=== PATIENT | female | born 1975 | race Caucasian/White ===

== ENCOUNTER 2016-03-26 13:19 | Emergency (ER) | payer OTHER ==
[2016-03-26 13:26] VITALS: BP 141/80
== END 2016-03-26 18:22 | disposition left against medical advice (07) ==
LOC: ED 13:19
DX: R51 Headache (principal); Z53.21 Procedure and treatment not carried out due to patient leaving prior to being seen by health care provider

== ENCOUNTER 2018-11-21 12:10 | Emergency (ER) | payer OTHER ==
[2018-11-21] MEDS ORDERED: diPHENhydraMINE IV* 50 MG/ML 1 ml VIAL (BENADRYL) ONE (12:21)
[2018-11-21] MEDS ORDERED: Dexamethasone IV* 4 MG/ML 1 ML (4 MG) ONE (12:22)
[2018-11-21] MEDS ORDERED: Famotidine IV* 10 MG/ML 2 ML (20 mg) ONE (12:23)
--- NOTE | 2018-11-21 12:24 | ED ---
Allergic Reaction/Systemic - HPI Summary HPI Summary: This patient is a 43 year old F presenting to ED with a chief complaint of bee sting on upper lip at 1130. Patient previously has had allergic reaction to bee stings. Today, she feels like her throat is swelling. She took two Benadryl tablets and an Epi-Pen at 1140. The patient rates the pain 0/10 in severity. Symptoms aggravated by nothing. Symptoms alleviated by Benadryl, Epi- Pen. Patient reports rash on upper chest. Patient denies SOB. - History of Current Complaint Chief Complaint: EDAllergicReaction Hx Obtained From: Patient Hx Last Menstrual Period: years Onset/Duration: Sudden Onset, Started minutes ago - At 1130, Still Present Timing: Constant, Lasting Minutes - Since 1130 Severity Initially: Moderate Severity Currently: Moderate Pain Intensity: 0 Pain Scale Used: 0-10 Numeric Character: Swelling, Hives - On neck Aggravating Factor(s): Nothing Alleviating Factor(s): Other - Benadryl, Epi-Pen Associated Signs And Symptoms: Positive: Negative - SOB, Rash, Throat Tightening - Allergies/Home Medications Allergies/Adverse Reactions: Allergies Allergy/AdvReac Type Severity Reaction Status Date / Time cephapirin [From Cefadyl] Allergy Intermediate Hives/Diff. Verified 10/29/18 14: 36 Breathing/I tching Penicillins Allergy Intermediate Hives/Diff. Verified 10/29/18 14:36 Breathing/I tching cefadroxil Allergy Hives/Diff. Verified 10/29/18 14:36 Breathing/I tching cephalexin Allergy Hives/Diff. Verified 10/29/18 14:36 Breathing/I tching troleandomycin Allergy Hives/Diff. Verified 10/29/18 14:36 Breathing/I tching ENVIRONMENTAL/SEASONAL Allergy SNEEZING, Uncoded 10/29/18 14:36 HAYFEVER STUFFINESS PMH/Surg Hx/FS Hx/Imm Hx Endocrine/Hematology History: Denies: Hx Diabetes Cardiovascular History: Denies: Hx Hypertension, Hx Pacemaker/ICD, Other Cardiovascular Problems/ Disorders Respiratory History: Reports: Hx Asthma Denies: Other Respiratory Problems/Disorders GI History: Reports: Hx Irritable Bowel Denies: Other GI Disorders History: Denies: Hx Renal Disease Musculoskeletal History: Reports: Hx Back Problems, Hx Tendonitis - RIGHT ARM, Other Musculoskeletal History - Chronic Neck Pain Sensory History: Reports: Hx Contacts or Glasses - GLASSES Denies: Hx Hearing Aid Opthamlomology History: Reports: Hx Contacts or Glasses - GLASSES Neurological History: Denies: Hx Headaches, Other Neuro Impairments/Disorders - PAIN CLINIC PT. Psychiatric History: Reports: Hx Anxiety Denies: Hx Panic Disorder - Cancer History Cancer Type, Location and Year: BASAL CELL NOSE - Surgical History Surgery Procedure, Year, and Place: tonsillectomy 1995; appendectomy 1996; tubal ligation 2000; endometrial ablation 2006; D&C 1999; R nose basal cell carcinoma removed 2008; endometrial implant removed R groin 2010. RADIAL NERVE DECOMPRESSION RIGHT ARM, 2012. 2013, LAPAROSCOPY,. [facility] HYSTERECTOMY 07/2014 Hx Anesthesia Reactions: Yes - SEVERE NAUSEA Infectious Disease History: No Infectious Disease History: Denies: Traveled Outside the [place] in Last 30 Days - Family History Known Family History: Positive: Hypertension, Other - Melanoma, Cervical cancer - Social History Alcohol Use: Occasionally Alcohol Amount: 1-2 drinks per week Hx Substance Use: No Substance Use Type: Reports: None Hx Tobacco Use: No Smoking Status (MU): Never Smoked Tobacco Have You Smoked in the Last Year: No Review of Systems ENT: Other - Swollen throat Negative: Shortness Of Breath Positive: Rash - On chest All Other Systems Reviewed And Are Negative: Yes Physical Exam - Summary Physical Exam Summary: GENERAL: Patient is a well-developed and nourished F who is lying comfortable in the stretcher. Patient is not in any acute respiratory distress. HEAD AND FACE: Normocephalic EYES: PERRLA, EOMI x 2. EARS: Hearing grossly intact. MOUTH: Oropharynx within normal limits. Uvula is unswollen and midline NECK: Supple, trachea is midline, no adenopathy, no JVD, no carotid bruit. CHEST: Symmetric, no tenderness at palpation LUNGS: Clear to auscultation bilaterally. No wheezing or crackles. CVS: Regular rate and rhythm, S1 and S2 present, no murmurs or gallops appreciated. ABDOMEN: Soft, non-tender. Bowel sounds are normal. No abnormal abdominal pulsations. EXTREMITIES: Full ROM in all major joints, no edema, no cyanosis or clubbing. NEURO: Alert and oriented x 3. No acute neurological deficits. Speech is normal and follows commands. SKIN: Hive-like rashes on neck anteriorly and posteriorly. Triage Information Reviewed: Yes Vital Signs On Initial Exam: Initial Vitals Temp Pulse Resp BP Pulse Ox 99.9 F 123 12 160/96 100 11/21/18 12:11 11/21/18 12:11 11/21/18 12:11 11/21/18 12:11 11/21/18 12:11 Vital Signs Reviewed: Yes Diagnostics - Vital Signs Vital Signs Temp Pulse Resp BP Pulse Ox 11/21/18 12:11 99.9 F 123 12 160/96 100 - Laboratory Lab Statement: Any lab studies that have been ordered have been reviewed, and results considered in the medical decision making process. Re-Evaluation - Re-Evaluation First Eval Re-Evaluation Time: 14:19 Change: Improved Comment: Patient reports feeling better. Given patient's allergic history, I will watch the patient for another hour and then discharge her. Patient understands and agrees with this plan. Second Eval Re-Evaluation Time: 15:27 Change: Improved Comment: Patient reports feeling better, safe for discharge. Allergic Reaction Course/Dx - Course Course Of Treatment: This patient is a 43 year old F presenting to ED with a chief complaint of allergic reaction to bee sting on upper lip at 1130. In the ED course patient received Decadron, Benadryl, Famotidine, and fluids. With treatment and observation, patient reports feeling better. I discussed results with patient, and she reports feeling better. She is hemodynamically stable and safe for discharge. Strict return precautions given and she will otherwise follow up with her PCP. Patient will be discharged home with dx of allergic reaction to bee sting. Patient understands and agrees with this plan. - Diagnoses Provider Diagnoses: Allergic reaction to bee sting Discharge ED - Sign-Out/Discharge Documenting (check all that apply): Patient Departure - Discharge Patient Received Moderate/Deep Sedation with Procedure: No - Discharge Plan Condition: Stable Disposition: HOME Prescriptions: diphenhydrAMINE HCl [Benadryl] 25 mg PO TID #24 capsule EPINEPHrine [Epipen 2-Shane] 0.3 mg IM ONCE #1 inj Famotidine TAB* [Pepcid 20 MG TAB*] 20 mg PO BID #24 tab predniSONE [Prednisone 20 MG TAB] 20 mg PO DAILY #4 tablet Patient Education Materials: Insect Bite or Sting (ED), Allergies (ED) Referrals: Marquise Weiss MD [Primary Care Provider] - 3 Days Additional Instructions: Follow up with your primary care physician in 1-3 days. RETURN TO THE EMERGENCY DEPARTMENT FOR CHANGING OR WORSENING SYMPTOMS. - Billing Disposition and Condition Condition: STABLE Disposition: Home - Attestation Statements Document Initiated by Prince: Yes Documenting Scribe: Sharif Ornelas Provider For Whom Prince is Documenting (Include Credential): Cesar Castorena MD Scribe Attestation: I, Sharif Ornelas, scribed for Cesar Castorena MD on 11/21/18 at 1807. Scribe Documentation Reviewed: Yes Provider Attestation: The documentation as recorded by the Sharif houston accurately reflects the service I personally performed and the decisions made by me, Cesar Castorena MD Status of Scribe Document: Viewed
[2018-11-21] MEDS ORDERED: NS 0.9% 1000 ML** 1,000 ML IV.FLUID IV ONE (12:27)
[2018-11-21] MEDS ORDERED: diPHENhydraMINE IV* 50 MG/ML 1 ml VIAL (BENADRYL) IV ONE (12:27)
[2018-11-21] MEDS ORDERED: Famotidine IV* 10 MG/ML 2 ML (20 mg) IV SLOW PU ONE (12:27)
[2018-11-21] MEDS ORDERED: Dexamethasone IV* 4 MG/ML 1 ML (4 MG) IV SLOW PU ONE (12:27)
[2018-11-21 15:53] VITALS: BP 118/72
== END 2018-11-21 15:55 | disposition home or self-care (01) ==
LOC: ED 12:10
DX: T63.441A Toxic effect of venom of bees, accidental (unintentional), initial encounter (principal); R21 Rash and other nonspecific skin eruption; Y92.9 Unspecified place or not applicable
CPT/HCPCS: 96374; 96375; 99284; J1100; J1200

== ENCOUNTER 2019-05-17 05:53 | Observation (INO) | payer OTHER ==
[~2019-05-17 05:53] MED LIST: Buffered Lidocaine 1% SYRIN* 1 ML/SYRINGE INTRADERM ONE
[2019-05-17] MEDS ORDERED: Gabapentin CAP(*) 300 MG PO ONE (06:00)
[2019-05-17] MEDS ORDERED: Lactated Ringers 1000 ML Bag* 1,000 ML IV SCH ×2 (06:00→12:00)
[2019-05-17] MEDS ORDERED: Famotidine IV* 10 MG/ML 2 ML (20 mg) IV ONE (06:00)
[2019-05-17] MEDS ORDERED: Buffered Lidocaine 1% SYRIN* 1 ML/SYRINGE INTRADERM ONE (06:33)
[2019-05-17] MEDS ORDERED: Gabapentin CAP(*) 300 MG ONE (06:34)
[2019-05-17] MEDS ORDERED: Famotidine IV* 10 MG/ML 2 ML (20 mg) ONE (06:34)
[2019-05-17] MEDS ORDERED: Lidocaine 1% w EPI 1:200,000* SDV 30 ML VIAL ONE (06:48)
[2019-05-17] MEDS ORDERED: Bacitracin INJECTION* 50,000 UNITS ONE (06:48)
[2019-05-17] MEDS ORDERED: Vancomycin(*) 1,000 MG in NS 0.9% 250 ML* 250 ML IV ONE (07:00)
[2019-05-17] MEDS ORDERED: Midazolam* 1 MG/ML 2 ML VIAL (2 MG) ONE ×2 (07:17→08:14)
[2019-05-17] MEDS ORDERED: fentaNYL* 50 MCG/ML 2 ML VIAL (100 MCG VIAL) ONE ×3 (07:17→11:28)
[2019-05-17] MEDS ORDERED: Rocuronium* 10 MG/ML VIAL ONE (08:25)
[2019-05-17] MEDS ORDERED: Lidocaine 2% PF * 5 ML VIAL ONE ×2 (08:41→14:27)
[2019-05-17] MEDS ORDERED: Acetaminophen IV 1GM/100ML * 100 ML ONE (08:41)
[2019-05-17] MEDS ORDERED: Propofol* 500 MG/50 ML BTL ONE (08:41)
[2019-05-17] MEDS ORDERED: Remifentanil* 2 MG VIAL ONE ×2 (08:49→08:51)
[2019-05-17] MEDS ORDERED: Scopolamine 1.5 mg* PATCH ONE (08:51)
[2019-05-17] MEDS ORDERED: EPHEDrine (Pressors)* 50 MG/ML VIAL ONE (09:25)
[2019-05-17] MEDS ORDERED: Naloxone* 0.4 MG/ML 1 ML VIAL IV PRN (09:36)
[2019-05-17] MEDS ORDERED: DiMENhydriNATE IV* 50 MG/ML VIAL IV PUSH PRN (09:36)
[2019-05-17] MEDS ORDERED: Ondansetron INJ* 2 MG/ML VIAL IV PRN ×2 (09:36→11:21)
[2019-05-17] MEDS ORDERED: diPHENhydraMINE IV* 50 MG/ML 1 ml VIAL (BENADRYL) IV PRN (09:36)
[2019-05-17] MEDS ORDERED: Levalbuterol 0.63MG/3ML NEB* UNIT OF USE INH PRN (09:36)
[2019-05-17] MEDS ORDERED: PROCHLORPERAZINE INJ 5 MG/ML 2 ML VIAL IV PRN ×2 (09:36→16:59)
[2019-05-17] MEDS ORDERED: Ondansetron INJ* 2 MG/ML VIAL ONE ×2 (10:41→14:28)
[2019-05-17] MEDS ORDERED: Dexamethasone IV* 4 MG/ML 1 ML (4 MG) ONE ×2 (10:41→14:28)
[2019-05-17] MEDS ORDERED: Magnesium Hydroxide LIQ* 30 ML UDC PO PRN (11:21)
[2019-05-17] MEDS ORDERED: HYDROcodone/ACETAMIN 5-325 MG* 1 TAB PO PRN (11:21)
[2019-05-17] MEDS: fentaNYL* 50 MCG/ML 2 ML VIAL (100 MCG VIAL) IV PRN ×3 (11:29→11:50)
[2019-05-17] MEDS: HYDROcodone/ACETAMIN 5-325 MG* 1 TAB PO PRN ×3 (13:00→22:34)
[2019-05-17] MEDS ORDERED: Propofol* 10 MG/ML 20 ML BTL ONE (14:28)
[2019-05-17] MEDS ORDERED: Ketorolac INJ* 30 MG/ML 1 ML VIAL ONE (14:28)
[2019-05-17] MEDS ORDERED: diPHENhydraMINE IV* 50 MG/ML 1 ml VIAL (BENADRYL) ONE (14:28)
--- NOTE | 2019-05-17 18:52 | CONS ---
HOSPITAL MEDICINE CONSULTATION REPORT: DATE OF CONSULT: 05/17/19 PROVIDER: Palomo Domínguez NP. ATTENDING PHYSICIAN WHILE IN THE HOSPITAL: Dr. Womack. CONSULTING PHYSICIAN: Dr. Kamilah Moreira (dictated by Palomo Domínguez NP). REASON FOR CONSULT: Co-management of care. HISTORY OF PRESENT ILLNESS: Ms. Webb is a 44-year-old female with a past medical history significant for asthma, endometriosis, and irritable bowel, who presented to [facility] for an elective anterior cervical diskectomy and fusion at C5- C6 with Dr. Womack. Please see dictated H and P from Dr. Womack for complete details. In brief, the patient has had ongoing pain for the past 2 years radiating to her left shoulder and left arm. Due to the consistent pain, she opted to proceed with an anterior cervical diskectomy and fusion at C5-C6. The patient denies any recent fevers, chills, chest pain, or shortness of breath. She denies any cough or hemoptysis. She denies any nausea, vomiting, diarrhea, abdominal pain, hematuria, dysuria, focal weakness, sensory loss, visual complaints, dysphagia, arthralgias, myalgias, rashes, lesions, open sores , psychosis, or anxiety. PAST MEDICAL HISTORY: Significant for asthma, endometriosis, irritable bowel syndrome, and spondylosis. PAST SURGICAL HISTORY: 1. Appendectomy. 2. Tonsillectomy. 3. Laparotomy. 4. TMJ surgery. 5. Tubal ligation. 6. Hysterectomy. HOME MEDICATIONS: Include: 1. Tylenol 650 mg every 4 hours as needed for pain. 2. Ibuprofen 400 to 600 mg every 6 hours. 3. Multivitamin. ALLERGIES: PENICILLIN, DURICEF, KEFLEX, and TROLEANDOMYCIN. FAMILY HISTORY: Mother with a history of hypertension. Father with a history of CHF. Maternal grandmother with bladder cancer. No reported history of diabetes. SOCIAL HISTORY: The patient has never smoked. She does report occasional alcohol use. No illicit drug use. Surrogate decision maker in the event she is unable to make her own decisions is her . She is a full code. REVIEW OF SYSTEMS: A 14-point review of systems was completed. All pertinent positives were mentioned in the HPI, otherwise were negative. The patient does complain of some left arm heaviness at this time, but has full range of motion of her left arm and sensation is intact to the left arm. PHYSICAL EXAM: General: At this time, Ms. Webb is alert and oriented, resting in her hospital bed. She is in no acute distress. Vital Signs: Blood pressure 127/91, heart rate 90, respirations are 20, O2 saturation is 100%. HEENT: Head is atraumatic, normocephalic. Eyes: EOMs are intact. Sclerae anicteric and not pale. Oral mucosa is moist. Neck: She does have an M J- collar intact with a dry and intact dressing to the right anterior neck. Lungs are clear to auscultation bilaterally. Cardiac: S1, S2. Regular rate and rhythm. No murmurs, rubs, or gallops. Abdomen is soft and nontender. Bowel sounds are present x4. Extremities: She is able to move all 4 extremities. There is no clubbing or cyanosis. Radial pulses are +2. Pedal pulses are +2. Sensation is intact to all 4 extremities. Neurologic: She is awake, alert, oriented x3. Speech is clear. Thought process is intact. Handgrips are equal. Sensation is intact to the upper and lower extremities. Skin: She does have a dressing dry and intact to her right anterior neck. DIAGNOSTIC STUDIES/LAB DATA: CBC from 05/03/19: WBCs were 6.4, RBCs 4.28, hemoglobin 14.0, hematocrit was 41, platelet count was 190. INR 0.98. Sodium 139, potassium 3.6, chloride 104, carbon dioxide was 21, anion gap was 14, BUN was 10, creatinine 0.84, glucose was 79. Urine was within normal limits with the exception specific gravity was 1.009, blood was 1+, and squamous epithelial cells were present. IMPRESSION AND PLAN: Ms. Webb is a 44-year-old female with a past medical history significant for asthma, endometriosis, irritable bowel, spondylosis, who presented to [facility] for an elective anterior cervical diskectomy and fusion at C5-C6 with Dr. Womack. Hospital Medicine was asked to consult to co-manage her care during this hospitalization. Our recommendations are as follows: 1. Status post anterior cervical diskectomy and fusion with Dr. Womack. Management per Neurosurgery. The patient should leave the M J-collar in place. Pain management per Neurosurgery. DVT prophylaxis per Neurosurgery. Ambulation and PT per Neurosurgery. 2. Asthma. The patient does not currently take any inhalers or treatment for her asthma. We will continue to monitor. 3. DVT prophylaxis: She will have SCDs. 4. FEN: She can have a regular diet. 5. Code status: She is a full code. TIME SPENT: Time spent on this consultation is 45 minutes, greater than half that time was spent at the bedside reviewing the events leading thus far to her hospitalization, performing physical exam, and reviewing my plan of care. I have discussed this with my attending Dr. Kamilah Moreira; she is in agreement with my plan. PALOMO DOMÍNGUEZ, SECURITY GUARDS DISPATCHER [id number]/CPS #: [id number] DES
--- NOTE | 2019-05-18 | OP ---
DATE OF OPERATION: 05/17/19 - ROOM #340 DATE OF : 77 SURGEON: Dilma Womack MD AGILE BUSINESS ANALYST: STEPHANIE Stevens ANESTHESIA: General. PRE-OP DIAGNOSES: 1. Degenerative disk disease. 2. Herniated nucleus pulposus. POST-OP DIAGNOSES: 1. Degenerative disk disease. 2. Herniated nucleus pulposus. OPERATIVE PROCEDURE: The patient underwent anterior cervical diskectomy and fusion at C5-6 with allograft, DBX, plate and screws, with intraoperative electrophysiological monitoring. ESTIMATED BLOOD LOSS: 10 cc. COMPLICATIONS: None. SUMMARY: The patient is a very pleasant 44-year-old female with complaints of severe neck pain radiating to the left more than right upper extremity. MRI revealed significant degenerative disk disease especially at C5-6 with left disk herniation. After failing conservative treatment modalities, she was offered the option of surgical intervention. After explaining expectations, limitations, and possible complications of the procedure to the patient and her family including her , her mother and her father with complications including, but not limited to bleeding, infection, risk of injury to adjacent structures, coma, paralysis, , need for additional procedures, anesthesia risks, stroke, blindness, cancer, instability, hardware failure, adjacent level disease, pseudoarthrosis, spinal fluid leak, recurrent laryngeal nerve injury, injury to the esophagus or trachea, need for tracheostomy or gastrostomy, Anju syndrome, postoperative hematoma, DVT, pulmonary embolism, need for prolonged ICU stay, prolonged hospitalization, prolonged rehabilitation; the patient was agreeable to proceed with surgery and informed consent was obtained. The patient understood that her condition may not improve and in fact may get worse after surgery and that she may need to have additional procedures in the future. She also understood that operative plan may be modified according to intraoperative findings and conditions and that the procedure can be abandoned or done in more than 1 stages. DESCRIPTION OF PROCEDURE: The patient was brought to the operating room and was placed under general anesthesia by the anesthesia team. She was carefully positioned supine on the Tenzin table and all bony prominences were meticulously padded. Her skin was prepped and draped in the standard fashion. After appropriate surgical pause and patient identification, a right transverse incision over the C5-6 disk space was marked on the skin with the assistance of intraoperative fluoroscopic imaging. After appropriate surgical pause and patient identification, the skin incision was infiltrated with local anesthetic. A #10 surgical blade was used to incise the skin. The incision was carried down through the subcutaneous tissue and the skin was carefully undermined with tenotomy scissors. Self-retaining retractors were introduced into the field and the platysma was then gently elevated and divided with Metzenbaum scissors. The platysma was undermined and then the plane between the medial border of the sternocleidomastoid and the medial structures was gently developed with sharp and dull dissection. The prevertebral fascia was identified and after this was thinned down with Kittner sponges, the anterior part of the spine was identified and a second intraoperative fluoroscopic imaging was obtained to confirm the appropriate surgical level. A second time- out was performed. Two [place] pins were placed, one in the vertebral body of C5 and one in C6 and self-retaining retractors were introduced into the field. The [place] pin retractor was also introduced and operative microscope was brought into the field. The diskectomy was performed after incising the annulus fibrosus with a #15 surgical blade. The diskectomy was carried out with pituitary rongeurs, Kerrison punches, high-speed drill, and curettes. The posterior longitudinal ligament was then identified and it was divided and the thecal sac was found to be free of any pressure phenomenon at the end of the diskectomy. Foraminotomies were performed bilaterally and the thecal sac was found to be free of any pressure phenomenon. After confirmation of meticulous hemostasis, meticulous inspection, copious irrigation, and after confirming meticulous hemostasis with Valsalva maneuver, a 7 mm allograft structural graft was inserted after being filled with locally harvested bone graft during the diskectomy and disk preparation phase of the procedure as well as DBX putty. A Zevo Medtronic plate was then placed and secured with temporary screws and intraoperative fluoroscopic imaging confirmed excellent placement of all hardware. Then, titanium screws were placed and fluoroscopic imaging confirmed excellent placement of all hardware. The self-retaining retractors were removed from the field and final operative x-ray revealed excellent placement of all hardware. The wound was then copiously irrigated and after confirmation of meticulous hemostasis and meticulous inspection, it was closed by layers over a Lazaro drain which was tunneled through a separate stab wound incision. The platysma was approximated with interrupted 2-0 Vicryl sutures while the subcutaneous tissue was approximated with interrupted 2-0 Vicryl sutures. The skin was then covered with Dermabond and sterile dressings. At the end of the procedure, all counts were reported to be correct. The patient remained hemodynamically stable throughout the case. Intraoperative electrophysiological monitoring remained stable throughout the case. The patient was then extubated and transferred to Recovery in excellent condition. [id number]/[facility] #: [id number] DES
[2019-05-18] MEDS: Acetaminophen TAB* 325 MG PO PRN ×2 (05:30→09:41)
--- NOTE | 2019-05-18 07:41 | PN ---
Progress Note - Progress Note Date of Service: 05/18/19 SOAP: Subjective: []No events ON. Tolerates Po well. Voids. Ambulates. Preop LUE pain resolved. Objective: []VSS, Afebrile. Wound s,c,d Lazaro drain output noted. Drain was removed. Catheter appeared to be intact. No complications. Patient tolerated procedure well. AAOx3. ABDOULAYE, CN II-XII grossly intact Motor 5/5 all extremities Sensory grossly intact to light touch Assessment: []44 yof PD#1 ACDF C 5-6 Plan: []Monitor VS, Neurochecks Maintain MJ collar XR today. DC planning if XR ok. Full instruction were given. No lifting, no bending, no driving. Keep incision dry. May shower starting tomorrow. No baths Follow up in office in 7-10 days. Appreciate IM care. Kami Womack MD
[2019-05-18 10:35] VITALS: BP 116/65
--- NOTE | 2019-05-18 20:26 | DS ---
CC: Dr. Marquise Weiss; Dr. Dilma Womack* DISCHARGE SUMMARY: DATE OF ADMISSION: 05/17/19 DATE OF DISCHARGE: 05/18/19 PRIMARY CARE PROVIDER: Dr. Marquise Weiss. NEUROSURGEON: Dr. Dilma Womack. ATTENDING PHYSICIAN: Dr. Maddy Rodriguez* (dictated by Gabriella rOdonez NP). PRIMARY DIAGNOSIS: Status post anterior cervical diskectomy and fusion at C5- C6. SECONDARY DIAGNOSES: 1. Asthma. 2. Endometriosis. 3. Irritable bowel syndrome. STUDIES WHILE IN THE HOSPITAL: Cervical spine x-ray on 05/18/19 reads as status post anterior cervical fusion. HISTORY OF PRESENT ILLNESS AND HOSPITAL COURSE: Ms. Webb is a 44-year-old female with past medical history of asthma, endometriosis, IBS, and spondylosis , who presented to [facility] on 05/17/19 for an elective anterior cervical diskectomy and fusion with Dr. Womack. Please see the history and physical by Dr. Womack for complete details, but in short, the patient had ongoing neck pain and elected to proceed with a diskectomy and fusion at C5-C6. The patient underwent the procedure on 05/17/[address] Womack. There was minimal blood loss. The patient did well in recovery and had no complications overnight. Pain has been managed with Christine. The patient was seen in followup by Dr. Womack this morning. He took a drain out at that point and ordered postoperative x-rays. The patient did have a cervical spine x- ray this morning, which Dr. Womack reviewed, I spoke with him after that and he reported that the x-ray looked fine and that the patient was stable for discharge from his perspective. The patient reports doing well and is interested to return home today. PHYSICAL EXAMINATION: On exam, she is alert and oriented x4 with no focal neurological deficits. She moves all extremities. Heart has a regular rate and rhythm without murmurs, rubs, or gallops. Lungs are clear to auscultation without rhonchi, wheezes, or rubs. There is no edema. There is a Archuleta J collar in place. Physical exam is otherwise benign. Ms. Webb is stable for discharge. Most recent vitals are as follows: Temp 98.5, heart rate 75, respiratory rate 14, oxygen saturation 100% on room air, blood pressure 116/65. DISCHARGE MEDICATIONS: New: 1. Christine 1 to 2 tabs p.o. q.6 hours p.r.n. pain. 2. Milk of mag 30 mL p.o. daily p.r.n. constipation. 3. Ondansetron 4 mg p.o. q.6 hours p.r.n. nausea and vomiting. Continued: 1. Acetaminophen 500 to 1000 mg p.o. b.i.d. p.r.n. pain. 2. EpiPen 0.3 mg IM once p.r.n. allergic reaction. 3. Ibuprofen 600 mg p.o. b.i.d. p.r.n. pain. 4. Probiotic 1 cap p.o. daily. 5. Multivitamin 1 tab p.o. daily. DISCHARGE PLAN: Ms. Webb will be discharged home. Activity will be as tolerated. Per Dr. Womack' instructions, the patient should not perform any lifting, bending, or driving. She should wear the [employer] J collar at all times except for while showering and eating. She should keep the incision dry. She is allowed to shower, but should not take any bathe. Medications are noted above. I have prescribed Christine for pain and Zofran for any nausea that she may have earlier to pain medications. She can continue her other usual medications as noted above. She will need to follow up with Dr. Womack in the office in 7 to 8 days. She should follow up with her primary care provider in the next 4 to 7 days as well. She should return to the emergency room or nearest hospital for any worsening of symptoms, shortness of breath, lightheadedness, dizziness, chest discomfort, high fevers, chills, night sweats , loss of consciousness, or any other worrisome signs or symptoms. DISCHARGE CONDITION: Stable. DISCHARGE DISPOSITION: Home. This is a summarized report of a complex medical history and hospital stay. For further details, please see the entire medical record. TIME SPENT: Approximately 40 minutes was spent on this discharge. GABRIELLA ORDONEZ, EDGE INKER [id number]/[facility] #: [id number] DES
[2019-05-20] MEDS ORDERED: Scopolamine PATCH Remove* 1 NOTE MISC PATCH OFF ONE (09:36)
== END 2019-05-18 12:01 | disposition home or self-care (01) ==
LOC: OR 05:53 → EDSTATUS 10:45 → SSU 11:21
PROVIDERS: ADMIT Neurological Surgery; ATTEND Neurological Surgery
DX: M50.30 Other cervical disc degeneration, unspecified cervical region (principal); M47.892 Other spondylosis, cervical region; M47.22 Other spondylosis with radiculopathy, cervical region; M50.20 Other cervical disc displacement, unspecified cervical region; Z88.0 Allergy status to penicillin; Z88.1 Allergy status to other antibiotic agents; K58.9 Irritable bowel syndrome, unspecified; N80.9 Endometriosis, unspecified; Z90.710 Acquired absence of both cervix and uterus
CPT/HCPCS: 72040; 76000; 96374; 96375; 96376; A9270-GY; G0378; J0780; J1100; J1200; J1885; J2001; J2250; J2405; J2704; J3010; J3370